=== PATIENT | male | born 1975 | race Caucasian/White ===

== ENCOUNTER 2019-01-03 06:03 | Day surgery (SDC) | payer BC, SELFPAY ==
[2019-01-03] VITALS (8 sets, daily range): BP systolic 122–148; BP diastolic 68–100; PULSE 56–76; RESP 9–18; TEMP 36.1–36.7; O2SAT 94–100
[2019-01-03] MEDS: Normal Saline 1,000 ML 80 ML IV (06:34)
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
--- NOTE | 2019-01-03 06:50 | PDOC.DSDIS_ITS ---
Discharge Plan Disposition Patient Disposition: HOME Condition: Good Discharge Details Reason For Visit: Incisional hernia Attending Provider: Asia Pizano Primary Care Provider: Constantino Purcell Home Meds and New Rx's Prescriptions: New acetaminophen [Tylenol] 325 mg Tablet 650 mg PO Q6H PRN (Reason: fever or pain) Qty: 30 RF: 0 oxycodone 5 mg Tablet 5 mg PO Q6H PRN PRN (Reason: Pain) Qty: 14 RF: 0 Continued hydrochlorothiazide 25 MG tablet 25 mg PO QAM Qty: 90 RF: 4 atenolol 50 MG tablet 50 mg PO DAILY Qty: 90 RF: 4 Changed ibuprofen 200 mg Capsule 600 mg PO QID PRNQty: 30 RF: 0 Discharge Instructions Instructions: Laparoscopic Herniorrhaphy (DC) Additional Instructions: Activity at Home after surgery: 1. Make sure you walk outside at least 4 times per day 2. You should be able to climb a flight of stairs 3. No driving while in pain or taking pain medications 4. No strenuous activity or heavy lifting for 2 weeks (laparoscopic surgery) Diet, Nutrition, & wound healin. Avoid alcohol until after you are recovered from your surgery 2. Make sure to eat plenty of lean protein (meat, fish, eggs, cottage cheese, beans) 3. Eat a variety of fruits and vegetables. Eat plenty of high fiber foods to avoid constipation. 4. Drink plenty of liquids to stay hydrated and avoid constipation Pain Medications: 1. Alternate Tylenol 650 mg and Ibuprofen 600 mg every 3 hours 2. Oxycodon 5 mg every 6 hours as needed for severe pain For Constipation: 1. Take Milk of Magnesia or MiraLax as needed for constipation Other: 1. You may shower daily. Do not scrub the incisions 2. Do not soak the incisions for 1 week 3. You may alternate ice and heat as needed for pain and swelling Wound Care: 1. Keep the incisions clean and dry Please call our office if you develop: 1. Fevers >101.5 2. Nausea or Vomiting 3. Worsening pain 4. Redness and thick discharge from the wounds If after hours please call the Hospital at and ask to speak to the on-call surgeon Referrals: Asia Pizano MD [ [facility] STAFF PHYSICIAN] - 01/16/19 1:45 pm Activity:: No lifting >20 lb x 2 weeks Diet:: As Tolerated Discharge Orders Discharge Orders: Discharge Order (Routine); Ordered 01/03/19 Ordered By: Asia Pizano DS: Diagnosis Discharge Diagnosis (1) Incisional hernia: Status: Acute (2) S/P laparoscopic hernia repair: Status: Acute
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
[2019-01-03] MEDS: PIPERACILLIN/TAZO 3.375 GM in Normal Saline 50 ML IVPB (07:44)
[2019-01-03] MEDS: Lidocaine 1% Multi-Dose 50 ML VIAL (07:49)
[2019-01-03] MEDS: fentaNYL 100 MCG/2 ML VIAL IVP (09:53)
[2019-01-03] MEDS: oxyCODONE 5 MG TAB PO (11:10)
== END 2019-01-03 12:45 | disposition home or self-care (01) ==
PROVIDERS: PCP Family Medicine; Visit Provider Surgery
PROC: 0WQF4ZZ Repair Abdominal Wall, Percutaneous Endoscopic Approach (ICD-10-PCS; CPT 49654; principal; 2019-01-03 07:30)
DX: K43.2 Incisional hernia without obstruction or gangrene (principal); I10 Essential (primary) hypertension
CPT/HCPCS: 49654; NC; C1781; J1100; J1885; J2250; J2405; J2543; J3010

== ENCOUNTER 2022-02-03 04:20 | Outpatient (CLI) | payer OTHER, SELFPAY ==
[2022-02-03 13:18] LABS: Anion Gap 9.8 mmol/L (3-11); BUN 16 mg/dL (7-18); CO2 28.2 mmol/L (21.0-32.0); CREATININE 1.1 mg/dL (0.70-1.30); Calcium 9.3 mg/dL (8.5-10.1); Calculated LDL 181 mg/dL (<100); Chloride 102 mmol/L (98-107); Cholesterol 274 mg/dL (<200); Glucose 125 mg/dL (74-106); HDL Cholesterol 43 mg/dL (40-60); Potassium 3.8 mmol/L (3.5-5.1); Sodium 140 mmol/L (136-145); Triglyceride 251 mg/dL (<150)
== END 2022-02-03 04:21 | disposition home or self-care (01) ==
LOC: LOS 04:20
PROVIDERS: PCP Family Medicine; Visit Provider Family Medicine
DX: E87.1 Hypo-osmolality and hyponatremia (principal); E78.5 Hyperlipidemia, unspecified
CPT/HCPCS: 36415; 80048; 80061

== ENCOUNTER 2022-10-19 02:34 | Outpatient (CLI) | payer OTHER, SELFPAY ==
[2022-10-19 07:56] LABS: CREATININE 1.2 mg/dL (0.70-1.30)
[2022-10-19] MEDS: Gadoterate meglumine 20 ML VIAL IVP (08:04)
[2022-10-19] MEDS: Normal Saline Flush 10 ML SYR IVP (08:05)
--- NOTE | 2022-10-19 08:20 | DI.MRI_ITS ---
Exam(s) MR IAC BRAIN WO/W EXAM: MR IAC BRAIN WO/W CLINICAL HISTORY: asymmetrical hearing loss,h91.8x9 TECHNIQUE: Multiplanar multisequence MRI of the brain was performed. Both noninfused and contrast i nfused sequences were performed. IV Contrast injected was 20 cc Dotarem. COMPARISON: No exams were available for comparison FINDINGS: CEREBRAL PARENCHYMA: No evidence of intracranial hemorrhage, mass effect nor shift of midline structu re. No extraaxial fluid collections. Ventricles are not enlarged nor shifted. There is no significant focal signal abnormality in the cerebellar hemispheres nor within the sidney, m idbrain, and thalami. There is no abnormal signal abnormality in the periventricular white matter. DWI: No areas of restricted diffusion to suggest acute ischemic event. SWI: No microhemorrhages evident. There are no ring enhancing lesions in the brain. There is no abnormal meningeal enhancement. INTERNAL AUDITORY CANALS: There are no masses in the cerebellopontine angles. Seventh and 8th cranial nerves within the internal auditory canals appear unremarkable. No evidence of intra canalicular aco ustic schwannoma-neuroma. No other masses in these regions. PITUITARY GLAND: No mass nor parasellar abnormality. No obvious abnormality in the cavernous sinuses. FLOW VOIDS: The expected flow void are noted. No evidence of obvious aneurysm nor obvious vascular ma lformation. PARANASAL SINUSES: There is mucosal thickening in the floor both maxillary sinuses. Also mucosal thi ckening in left sphenoid sinus and ethmoidal air cells and mild mucosal thickening in the right front al sinus. There are no fluid levels in the paranasal sinuses. No effusion in the mastoid air cells on either side. ORBITS: No obvious abnormal findings. IMPRESSION: 1. No significant intracranial findings on this MRI scan of the brain. No evidence of mass in the cer ebellopontine angles nor in the internal auditory canals. No evidence of acoustic neuroma-schwannoma. 2. No abnormal enhancing intracranial findings. There are no ring enhancing lesions in the brain and there is no abnormal meningeal enhancement. 3. There is abundant mucosal thickening-paranasal sinus disease involving both maxillary sinuses, sph enoid sinus and ethmoidal air cells bilaterally. DATA REPOSITORY:
== END 2022-10-19 02:54 ==
LOC: DI 02:34
PROVIDERS: PCP Family Medicine; Visit Provider Registered Nurse Maternal Newborn
DX: J32.0 Chronic maxillary sinusitis (principal)
CPT/HCPCS: 70553; 82565

== ENCOUNTER 2024-04-24 02:37 | Outpatient (CLI) | payer OTHER, SELFPAY ==
[2024-04-24 08:21] LABS: HCT 46.8 % (40.0-50.0); HGB 16.2 g/dL (13.5-17.5); MCHC 34.6 % (32.0-36.0); MCV 84 fL (80-95); MPV 10.1 fL (8.0-11.0); Platelet Count 264 10^3/uL (130-400); RBC 5.58 10^6/uL (4.36-5.78); RDW 12.5 % (11.8-14.1); RDW-SD 37.9 fL; WBC 8.04 10^3/uL (4.4-10.8)
[2024-04-24 09:29] LABS: ALT 74 U/L (16-63); AST 28 U/L (15-37); Albumin 3.8 g/dL (3.4-5.0); Alkaline Phosphatase 75 U/L (46-116); Anion Gap 4.7 mmol/L (3-11); BUN 13 mg/dL (7-18); Bilirubin, Total 0.49 mg/dL (0.2-1.0); CO2 33.3 mmol/L (21.0-32.0); CREATININE 1.1 mg/dL (0.70-1.30); Calculated LDL 176 mg/dL (<100); Chloride 103 mmol/L (98-107); Cholesterol 267 mg/dL (<200); Estimated GFR 83.32 (mL/min/1.73m2); Glucose 103 mg/dL (74-106); HDL Cholesterol 44 mg/dL (40-60); Potassium 3.9 mmol/L (3.5-5.1); Sodium 141 mmol/L (136-145); Total Protein 7.6 g/dL (6.4-8.2); Triglyceride 239 mg/dL (<150)
[2024-04-24 09:55] LABS: Hemoglobin A1C 5.6 % (<5.7)
[2024-04-25 10:44] LABS: HIV-1/2 Ag & Ab Screen Negative (Negative)
[2024-04-25 11:04] LABS: Hepatitis C Ab w Rflx HCV PCR Negative (Negative)
[2024-04-25 11:16] LABS: HBs Antibody, Quant <3.1 mIU/mL (See Note); Hep B Surface Ab Negative (See Note); Hepatitis B Core Antibody Negative (Negative); Hepatitis B Surface Antigen Negative (Negative)
== END 2024-04-24 02:38 | disposition home or self-care (01) ==
PROVIDERS: PCP Family Medicine; Visit Provider Family Medicine
DX: R10.9 Unspecified abdominal pain (principal); Z00.00 Encounter for general adult medical examination without abnormal findings; Z11.59 Encounter for screening for other viral diseases; E11.51 Type 2 diabetes mellitus with diabetic peripheral angiopathy without gangrene; I70.209 Unspecified atherosclerosis of native arteries of extremities, unspecified extremity; R53.83 Other fatigue; E78.5 Hyperlipidemia, unspecified
CPT/HCPCS: 36415; 80053; 80061; 85027; 86704; 86706; 86803; 87340; 87389; 83036

== ENCOUNTER 2025-06-06 04:20 | Outpatient (CLI) | payer OTHER, SELFPAY ==
--- NOTE | 2025-06-06 10:09 | TELEFU_ITS ---
Date of service: 06/06/25 Time of Service: 08:30 Nutrition Note NOTE: Jerzy referred to nutrition visit due to accumulating metabolic concerns from provider - Jerzy states concern about his blood pressure, his weight and his glucose (which he states is borderline). Been works a lot of hours at [employer] and on his feet all day. Gets home and feels tired - no current exercise. Tends to just have coffee for breakfast (coffee mate and sugar) and will work most of the day until late afternoon when he gets very hungry - but will choose more reative food choices like fast food or take out, doesn't usually bring food from home. Has a large dinner and snacks after 7pm. He does currently have a soda habit - pepdajuan/macey perez. We discussed biggest changes he needs to consider: -decrease added sugars. He is certainly over 60g per day in this category. Reviewed strategies and label reading -increase fiber to at least 30 grams per day - reviewed strategies and types of food choices -increase lean and plant protein to goal of ~150g per day - reviewed importance of lower fat choices to avoid excess kcals -eat reall food - closer to the tree/abrams/field/animal it came from. -think about starting an exercise habit Jerzy took a handout and my contact info should he have questions. He will start aiming for low-hanging fruit in terms of addressing habits around his added sugar intake. Time Spent in Nutritional Counseling and Treatment: 30min
== END 2025-06-06 04:21 | disposition home or self-care (01) ==
LOC: DS 04:20
PROVIDERS: PCP Family Medicine; Visit Provider Dietitian, Registered
DX: R73.03 Prediabetes (principal)
CPT/HCPCS: 00123; 97802

== ENCOUNTER 2025-08-16 02:03 | Outpatient (CLI) | payer OTHER, SELFPAY ==
[2025-08-16 11:05] LABS: Anion Gap 6.3 mmol/L (3-11); BUN 13 mg/dL (9-23); CO2 29.7 mmol/L (20.0-31.0); Calcium 9.2 mg/dL (8.3-10.6); Chloride 107 mmol/L (98-107); Cholesterol 222 mg/dL (<200); Glucose 95 mg/dL (74-106); HDL Cholesterol 47 mg/dL (>40); Potassium 4.3 mmol/L (3.5-5.1); Sodium 143 mmol/L (136-145)
== END 2025-08-16 02:04 | disposition home or self-care (01) ==
PROVIDERS: PCP Family Medicine; Visit Provider Family Medicine
DX: E78.5 Hyperlipidemia, unspecified (principal); Z13.220 Encounter for screening for lipoid disorders; E87.1 Hypo-osmolality and hyponatremia
CPT/HCPCS: 36415; 80048; 80061; 83695

== ENCOUNTER 2025-08-22 09:17 | Outpatient (CLI) | payer OTHER, SELFPAY ==
[2025-08-27 10:30] LABS: Renin Activity, Plasma 4.6 ng/mL/h
== END 2025-08-22 09:18 | disposition home or self-care (01) ==
LOC: LBO 09:17
PROVIDERS: PCP Family Medicine; Visit Provider Family Medicine
DX: I10 Essential (primary) hypertension (principal)
CPT/HCPCS: 36415; 82088; 84244